=== PATIENT | female | born 1955 | race Caucasian/White ===

== ENCOUNTER → 2017-03-09 | Outpatient (CLI) | payer BC ==
[~2017-03-09] VITALS: Ht 172.7 cm; Wt 90.7 kg
[~2017-03-09] MED LIST: REGADENOSON 0.4 MG/5 ML SYR (LEXISCAN) IV ONE
[2017-03-09] MEDS: CATHETER FLUSH 10 ML SYR IV PRN ×2 (08:05→09:45)
[2017-03-09 09:43] VITALS: BP 144/96
--- NOTE | 2017-03-10 02:42 | STRESS TEST ---
DATE OF SERVICE: 03/09/2017 NUCLEAR STRESS TEST REPORT REASON FOR EXAMINATION: Hyperlipidemia, hypertension, shortness of breath. PROCEDURE DETAILS: The patient was brought to the stress lab after informed consent was taken. Lexiscan stress test was performed according to the protocol. A 0.4 mg of Lexiscan was given IV. Low grade exercise was performed. Baseline rhythm was sinus rhythm, 61 BPM. Blood pressure was 144/96 mmHg. Maximum heart rate was 95 BPM, blood pressure was 144/88 mmHg. There was no chest pain, arrhythmias or ST-T wave abnormalities noted. A 10.83 mCi of Myoview were given for rest imaging and 29.0 mCi of Myoview were given for stress imaging. TID was 0.96, ejection fraction 70%. There is a medium-sized reversible anterior defect noted on review of perfusion imaging. Normal wall motion is noted. IMPRESSION AND CONCLUSION: 1. Pharmacological stress test negative for ischemia. 2. There is evidence of anterior ischemia. Coronary angiography is recommended. Job ID: [id number] DocumentID: [id number] Dictated Date: 03/09/2017 11:36:13 Field Irrigation Worker Date: 03/09/2017 12:22:29 Dictated By: YUSUF TORRES MD
== END ==
LOC: CARD 07:44
PROVIDERS: ATTEND Internal Medicine Interventional Cardiology
DX: I10 Essential (primary) hypertension (principal); E78.5 Hyperlipidemia, unspecified; R06.02 Shortness of breath
CPT/HCPCS: 78452; 93017

== ENCOUNTER 2017-03-13 11:57 | Inpatient (IN) | payer BC ==
[~2017-03-13] VITALS: Ht 172.7 cm; Wt 90.7 kg
[2017-03-13] MEDS ORDERED: LIDOCAINE 1% INJ 50 ML (XYLOCAINE) VIAL ONE (12:20)
[2017-03-13] MEDS ORDERED: HEParin (CATH LAB) 2,000 ML IV ONE (12:20)
[2017-03-13] MEDS ORDERED: NS IV 1000 ML 1,000 ML ONE ×2 (12:20→16:19)
[2017-03-13 12:41] VITALS: BP 142/98
[2017-03-13 12:50] LABS: RED BLOOD COUNT 5.3 10^6/uL (4.35-5.85); RED CELL DISTRIBUTION WIDTH 12.9 % (10.0-14.5); WHITE BLOOD COUNT 6.6 10^3/uL (4.3-11.0)
[2017-03-13 12:55] LABS: INR 0.9 (0.8-1.4); PROTHROMBIN TIME PATIENT 12.2 SEC (12.2-14.7)
[2017-03-13 13:04] LABS: ALANINE AMINOTRANSFERASE 51 U/L (0-55); ALBUMIN 4.4 GM/DL (3.2-4.5); ANION GAP 9 MMOL/L (5-14); ASPARTATE AMINO TRANSFERASE 28 U/L (5-34); BILIRUBIN,TOTAL 0.6 MG/DL (0.1-1.0); BLOOD UREA NITROGEN 8 MG/DL (7-18); BUN/CREATININE RATIO 9; CALCIUM 9.5 MG/DL (8.5-10.1); CARBON DIOXIDE 26 MMOL/L (21-32); CHLORIDE 105 MMOL/L (98-107); CREATININE SERUM 0.93 MG/DL (0.60-1.30); GFR ESTIMATED > 60; GLUCOSE 93 MG/DL (70-105); POTASSIUM 4.2 MMOL/L (3.6-5.0); SODIUM 140 MMOL/L (135-145); TOTAL PROTEIN 7.3 GM/DL (6.4-8.2)
[2017-03-13] MEDS ORDERED: ASPI-983 PO (13:12)
[2017-03-13] MEDS ORDERED: LORA10TA76 PO (13:12)
[2017-03-13] MEDS ORDERED: OMEP20CA12 PO (13:12)
[2017-03-13] MEDS ORDERED: ATOR20TA66 PO (13:14)
[2017-03-13] MEDS ORDERED: AMLO5TAB2 PO (13:14)
[2017-03-13] MEDS ORDERED: NS IV 1000 ML 1,000 ML IV SCH (13:15)
[2017-03-13] MEDS ORDERED: ACET325T38 PO (13:15)
[2017-03-13] MEDS ORDERED: fentaNYL INJECTION 100 MCG/2 ML AMP ONE (14:23)
[2017-03-13] MEDS ORDERED: MIDAZOLAM 2 MG/2 ML (VERSED) VIAL ONE ×2 (14:23→16:15)
[2017-03-13] MEDS ORDERED: diphenhydrAMINE 50 MG/ML INJ (BENADRYL) ONE (14:24)
[2017-03-13] MEDS ORDERED: HEParin 1000 UNIT/ML (10ML VIAL) FOR BOLUS ONE (14:25)
[2017-03-13] MEDS ORDERED: NITROGLYCERIN DRIP 25 MG/D5W 250 ML IV ONE (14:26)
[2017-03-13] MEDS ORDERED: VERAPAMIL 5 MG/2 ML (CALAN) VIAL IV ONE (14:27)
--- NOTE | 2017-03-13 14:55 | Cardiac Procedure Note-CS/ASA ---
Pre-Procedure Note Pre-Op Procedure Note H&P Reviewed The H&P was reviewed, patient examined and no changes noted. Date H&P Reviewed: Mar 13, 2017 Time H&P Reviewed: 14:54 Conscious Sedation Pre-Proced Time Reviewed: 14:54 ASA Class: 3 Airway Mallampati Classification: (red devil appropriate class) I. II. III, IV Lungs Heart ASA score ASA 1: a normal healthy patient ASA 2: a patient with a mild systemic disease (mid diabetes, controlled hypertension, obesity ASA 3: a patient with a severe systemic disease that limits activity (angina , COPD, prior Myocardial infarction) ASA 4: a patient with an incapacitating disease that is a constant threat to life (CHF, renal failure) ASA 5: a moribund patient not expected to survive 24 hrs. (ruptured aneurysm) ASA 6: a declared brain patient whose organs are being harvested. For emergent operations, add the letter E after the classification Grade 1 Sedation Plan: Analgesia, Amnesia, Plan communicated to team members, Discussed options with patient/fam, Discussed risks with patient/fam Note The patient is an appropriate candidate to undergo the planned procedure, sedation, and anesthesia. The patient immediately re-assessed prior to indication. Micheline TORRES MD Mar 13, 2017 2:55 pm
[2017-03-13] MEDS ORDERED: ADENOSINE 3 MG/1 ML (ADENOSCAN) 30ML VIAL IV ONE ×2 (15:11→16:03)
[2017-03-13] MEDS ORDERED: CLOPIDOGREL 300 MG (PLAVIX) TABLET PO ONE (15:59)
[2017-03-13] MEDS ORDERED: ATROPINE INJECTION 1 MG/10 ML SYR (ABBOTT) ONE (16:10)
[2017-03-13] MEDS ORDERED: FLUMAZENIL (ROMAZICON) 0.1 MG/ML 5 ML VIAL ONE (16:40)
[2017-03-13] MEDS ORDERED: PATIENT MAY USE OWN MEDS, ALL PO SCH (17:00)
[2017-03-13] MEDS ORDERED: NITROGLYCERIN 2% OINT 1 GM UNIT DOSE PACKET ONE (17:09)
[2017-03-13] MEDS ORDERED: morphine INJ 10 MG/ML 1ML (SYR OR VIAL) ONE (17:12)
--- NOTE | 2017-03-13 17:41 | Cardiology Post Procedure Note ---
Post-Procedure Note Physician (s)/Geoscientist (s) Physician Micheline TORRES MD Pre-Procedure Diagnosis Pre-Procedure Diagnosis: shortness of breath, abnormal nuc stress test Post-Procedure Note Procedure Start Date: Mar 13, 2017 Procedure Start Time: 14:00 Name of Procedure: coronary angiography, LHC, FFR to LAD, PCI to LAD with two RAMON Findings/Procedure Note Moderate to Severe LAD stenosis - FFR 0.57, therefore treated with two RAMON. at the end of the procedure, patient complained of shortness of breath and there was acute confusion. Vitals stable, oxygen saturation 99%, Coronary angiography shows MARY III flow with patent stents. Normal cardiac and respiratory examination. Echo done immediately which showed normal LVEF with normal wall motion, no pericardial effusion. CT head - non-contrast; negative for bleed (prelim). transfer to ICU - ICU consult with Dr Vera. Anesthesia Type: Conscious Sedation Estimated blood loss (mL): 20 Contrast Amount: 350 Post-Procedure Diagnosis Post-operative diagnosis: PCI with 2 RAMON to proximal and mid LAD. Episode of Acute confusion and shortness of breath at the end of the procedure; improved with morphine Micheline TORRES MD Mar 13, 2017 5:41 pm
[2017-03-13] MEDS ORDERED: ONDANSETRON 4 MG/2 ML (SDV) Z0FRAN IVP PRN (18:20)
--- NOTE | 2017-03-13 18:21 | Diagnostic Imaging Report ---
EXAM: CT scan of the head performed without intravenous contrast. INDICATION: Confusion developed during cardiac catheter. FINDINGS: There is intravascular contrast seen, probably related to contrast administration during the cardiac catheter procedure. This may decrease sensitivity of this study to detect minimal intracranial hemorrhage. No intracranial hematoma however is evident on this exam. The camara-white matter differentiation appears preserved. No hydrocephalus. No extra-axial fluid collection is seen. The calvarium, the visualized portions of the paranasal sinuses and orbits appear unremarkable. IMPRESSION: No definite abnormality. Dictated by: Dictated on workstation # [id number]
[2017-03-13] MEDS ORDERED: NITROGLYCERIN 0.4 MG SL TABS BTL 25'S SL ONE (18:45)
[2017-03-13] MEDS ORDERED: morphine INJ 4 MG/ML 1 ML (VIAL/SYRINGE) IVP PRN (18:45)
[2017-03-13 19:00] VITALS: BP 176/89
[2017-03-13 20:00] VITALS: BP 174/81
[2017-03-13] MEDS ORDERED: amLODIPine 10 MG (NORVASC) TAB PO ONE (20:00)
[2017-03-13 21:00] VITALS: BP 177/96
[2017-03-13 22:00] VITALS: BP 151/86
[2017-03-13] MEDS: NS IV 1000 ML 1,000 ML IV SCH (22:30)
[2017-03-14] VITALS (7 sets, daily range): BP systolic 130–154; BP diastolic 62–107
[2017-03-14] MEDS ORDERED: ACETAMINOPHEN 325 MG TABLET/CAPLET (TYLENOL) PO PRN ×2 (00:30→08:00)
[2017-03-14 04:53] LABS: MEAN PLATELET VOLUME 11.9 FL (7.4-10.4); RED BLOOD COUNT 4.61 10^6/uL (4.35-5.85); RED CELL DISTRIBUTION WIDTH 13.1 % (10.0-14.5)
[2017-03-14 05:09] LABS: ANION GAP 10 MMOL/L (5-14); BLOOD UREA NITROGEN 7 MG/DL (7-18); BUN/CREATININE RATIO 9; CALCIUM 8.3 MG/DL (8.5-10.1); CARBON DIOXIDE 22 MMOL/L (21-32); CHLORIDE 105 MMOL/L (98-107); CREATININE SERUM 0.77 MG/DL (0.60-1.30); GFR ESTIMATED > 60; GLUCOSE 110 MG/DL (70-105); POTASSIUM 4.1 MMOL/L (3.6-5.0); SODIUM 137 MMOL/L (135-145)
[2017-03-14] MEDS: NS IV 1000 ML 1,000 ML IV SCH ×2 (05:49→09:02)
[2017-03-14] MEDS ORDERED: CATHETER FLUSH 10 ML SYR IV PRN (07:00)
--- NOTE | 2017-03-14 07:23 | Pulmonary Consultation ---
History of Present Illness History of Present Illness Date of Consultation 03/13/17 late note for 03/13 today is 03/14 07:17 Time Seen by Provider: 18:00 Date of Admission History of Present Illness 61yo presented for cardiac cath and after cath started complained of worsening SOB and acute confusion. Sp02 was 99%. Echo showed normal cardiac function. CT of head was done stat and showed no acute change. I was called to see patient secondary to his symptoms of confusion and SOB. Upon my arrival symptoms had resolved and pt is now A&O. Family at bedside. Pt has no complaints/concerns currently. Allergies and Home Medications Allergies Coded Allergies: No Known Drug Allergies (Unverified , 03/09/17) Home Medications Acetaminophen 325 Mg Tablet, 325 MG PO Q4H PRN for PAIN-MILD, (Reported) Amlodipine Besylate 5 Mg Tablet, 5 MG PO DAILY, (Reported) Aspirin 81 Mg Tablet.dr, 81 MG PO HS, (Reported) Atorvastatin Calcium 20 Mg Tablet, 10 MG PO HS, (Reported) TAKES 1/2 (20MG) TABLET Loratadine 10 Mg Tablet, 10 MG PO DAILY, (Reported) Omeprazole 20 Mg Capsule.dr, 20 MG PO DAILY, (Reported) Past Uwvwshy-Dxzzlx-Ducvxg Hx Patient Social History Smoking Status: Never a Smoker Recent Foreign Travel: No Contact w/Someone Who Travel: No Recent Infectious Disease Expo: No Immunizations Up To Date Date of Influenza Vaccine: Dec 12, 2016 Cancer Cancer: Skin Review of Systems Time Seen by Provider: 07:24 Constitutional: Weakness, Malaise, No: Fever, Chills, Sweats, Other Eyes: No: Pain, Vision change, Conjunctivae inflammation, Eyelid inflammation, Other, Redness ENT: No: Ear pain, Ear discharge, Nose pain, Nose discharge, Nose congestion, Mouth pain, Mouth swelling, Throat pain, Throat swelling, Other Respiratory: Cough, Dry, Shortness of breath, SOB with excertion, No: Wheezing , Hemoptysis Cardiovascular: Chest Pain, Palpitations, Orthopnea, Paroxysmal Noc. Dyspnea Neurological: No: Weakness, Numbness, Incoordination, Change in speech, Confusion, Seizures, Other Exam Exam Vital Signs Date Time Temp Pulse Resp B/P (MAP) Pulse Ox O2 Delivery O2 Flow Rate FiO2 03/14/17 04:00 66 137/70 (92) Room Air 03/14/17 01:00 78 12/12/17 00:00 97.8 75 150/86 (107) Room Air 03/13/17 22:00 70 151/86 (107) Room Air 03/13/17 21:00 97 Room Air 03/13/17 21:00 72 177/96 (123) Room Air 03/13/17 20:00 98.0 72 174/81 (112) Room Air 03/13/17 19:00 75 03/13/17 19:00 63 176/89 (118) Room Air 03/13/17 12:41 97.2 61 17 142/98 (113) 98 Room Air General Appearance: Anxious, Mild Distress HEENT: PERRL/EOMI Neck: Full Range of Motion, Non Tender, Supple Respiratory: Decreased Breath Sounds Cardiovascular: Regular Rate, Rhythm, No Edema, No Gallop, Normal Peripheral Pulses Gastrointestinal: normal bowel sounds, non tender, soft, no organomegaly Extremity: Normal Capillary Refill, Normal Inspection Neurologic/Psychiatric: Alert, Oriented x3 Skin: Normal Color Lymphatic: No Adenopathy Results Lab Laboratory Tests 03/13/17 12:40 03/14/17 04:30 Assessment/Plan Assessment/Plan Moderate to Severe LAD stenosis s/p cath Acute psychosis and SOB post anesthesia -- now resolved. -Monitor in ICU -Head CT is negative -Check CXR Labs and radiology reviewed 255 PHIL WOLFE DO Mar 14, 2017 07:23
--- NOTE | 2017-03-14 07:30 | Pulmonary Progress Note ---
Subjective Time Seen by Provider: 07:29 Subjective/Events-last exam Pt has no complaints. Denies SOB. He does have mild CP that he contributes to his telemetry. Exam Exam Vital Signs Date Time Temp Pulse Resp B/P (MAP) Pulse Ox O2 Delivery O2 Flow Rate FiO2 03/14/17 04:00 66 137/70 (92) Room Air 03/14/17 01:00 78 03/14/17 00:00 97.8 75 150/86 (107) Room Air 03/13/17 22:00 70 151/86 (107) Room Air 03/13/17 21:00 97 Room Air 03/13/17 21:00 72 177/96 (123) Room Air 03/13/17 20:00 98.0 72 174/81 (112) Room Air 03/13/17 19:00 75 03/13/17 19:00 63 176/89 (118) Room Air 03/13/17 12:41 97.2 61 17 142/98 (113) 98 Room Air General Appearance: No Apparent Distress, Anxious HEENT: PERRL/EOMI Neck: Full Range of Motion, Non Tender, Supple Respiratory: Decreased Breath Sounds Cardiovascular: Regular Rate, Rhythm, No Edema, No Gallop, Normal Peripheral Pulses Gastrointestinal: normal bowel sounds, non tender, soft, no organomegaly Extremity: Normal Capillary Refill, Normal Inspection Neurologic/Psychiatric: Alert, Oriented x3 Skin: Normal Color Lymphatic: No Adenopathy Results Lab Laboratory Tests 03/13/17 12:40 03/14/17 04:30 Assessment/Plan Assessment/Plan Moderate to Severe LAD stenosis s/p cath -Cardiology is following Elevated troponin - probably secondary to heart cath. Acute psychosis and SOB post anesthesia -- now resolved. -Monitor in ICU -Head CT is negative -Check CXR Labs and radiology reviewed. 232 PHIL WOLFE DO Mar 14, 2017 07:30
--- NOTE | 2017-03-14 07:55 | Diagnostic Imaging Report ---
INDICATION: Shortness of breath. COMPARISON: None FINDINGS: Upright portable view of the chest is obtained. Heart size is normal. The pulmonary vessels appear unremarkable. There is no pneumothorax, mediastinal widening or pleural fluid. The lungs are clear. IMPRESSION: No acute abnormality is demonstrated. Dictated by: Dictated on workstation # [id number]
[2017-03-14] MEDS ORDERED: CLOPIDOGREL 75 MG (PLAVIX) TABLET PO SCH (09:00)
[2017-03-14] MEDS: amLODIPine 5 MG (NORVASC) TAB PO SCH (09:47)
[2017-03-14] MEDS: OMEPRAZOLE 20 MG (PriLOSEC) CAP NON-FORMULARY PO SCH (09:48)
[2017-03-14] MEDS: LORATADINE (CLARITIN) 10 MG TAB PO SCH (09:48)
[2017-03-14] MEDS: ASPIRIN E.C. 81 MG (ECOTRIN) TAB PO SCH ×2 (09:52→11:56)
[2017-03-14] MEDS ORDERED: TICAGRELOR 90 MG TABLET (BRILINTA) PO NR (12:00)
--- NOTE | 2017-03-14 12:42 | Cardiology Progress Note ---
Cardiology SOAP Progress Note Subjective: Mild chest pain yesterday evening. Acute confusion and shortness of breath improved in the evening. Objective: I&O/Vital Signs Vital Sign - Last 12Hours 03/14/17 03/14/17 03/14/17 03/14/17 01:00 04:00 07:00 07:50 Temp 98.3 Pulse 78 66 74 75 Resp 20 B/P (MAP) 137/70 (92) 150/82 (104) Pulse Ox 98 O2 Delivery Room Air Room Air 03/14/17 03/14/17 08:00 11:57 Temp 98.8 Pulse 72 Resp 16 B/P (MAP) 150/107 (121) 154/79 (104) Pulse Ox 97 O2 Delivery Room Air Weight (Pounds): 200 Weight (Ounces): 0.0 Weight (Calculated Kilograms): 90.394587 Side: right Condition: extremity w/d/p Swelling: without swelling Constitutional: No appears stated age, No AAO x 3, No apparent distress, No PERRL, No well-developed, No well-nourished, No other Respiratory: No accessory muscle use, No respiratory distress, No chest tender , No chest expansion is symmetric, No chest is bilaterally symmetric, No lungs clear to percussion, No lungs clear to auscultation, No crackles, No rhonchi, No rales, No stridor, No wheezing, No pleural rub, No other Cardiovascular: No regular rate-rhythm, No irregularly irregular, No extra beats, No parasternal heave is noted, No JVD, No edema, No bradycardia, No tachycardia, No point of maximal impulse, No cardiac thrills are palpable, No S1 and S2, No gallop/S3, No gallop/S4, No diastolic murmur, No systolic murmur, No friction rub, No click, No other Gastrointestional: No tender, No soft, No round, No distended, No pulsatile mass, No organomegaly, No guarding, No rebound, No tenderness, No hernia, No mass, No audible bowel sounds, No abnormal bowel sounds, No abdominal bruits, No spleenomegaly, No other Extremities: No normal range of motion, No non-tender, No normal inspection, No pedal edema, No calf tenderness, No normal capillary refill, No pelvis stable , No calf tenderness, No inflammation, No pedal edema, No slow capillary refill , No swelling, No other, No abrasion, No clubbing, No cyanosis, No ecchymosis, No laceration, No no lower extremity edema bilateral, No significant edema, No tenderness, No wound Neurologic/Psychiatric: No research geologist II-XII nml as tested, No no motor/sensory deficits, No alert, No normal mood/affect, No oriented x 3, No abnormal cerebellar tests, No abnormal research geologist II-XII, No abnormal gait, No aphasia, No EOM palsy, No facial droop, No motor weakness, No sensory deficit, No depressed affect, No disoriented x 3, No other, No grossly intact, No power is 5/5 both on sides Skin: No normal color, No warm/dry, No cyanosis, No cool, No diaphoresis, No damp, No ecchymosis, No jaundice, No mottled, No pallor, No rash, No tattoos/ piercings, No ulcerations, No rash on exposed areas, No ulcerations on exposed areas, No other Results/Procedures: Labs Laboratory Tests 03/13/17 12:40: White Blood Count 6.6, Red Blood Count 5.30, Hemoglobin 16.1, Hematocrit 45, Mean Corpuscular Volume 85, Mean Corpuscular Hemoglobin 30, Mean Corpuscular Hemoglobin Concent 36, Red Cell Distribution Width 12.9, Platelet Count 202, Mean Platelet Volume 11.0H, Prothrombin Time 12.2, INR Comment 0.9, Activated Partial Thromboplast Time 30, Sodium Level 140, Potassium Level 4.2, Chloride Level 105, Carbon Dioxide Level 26, Anion Gap 9, Blood Urea Nitrogen 8, Creatinine 0.93, Estimat Glomerular Filtration Rate > 60, BUN/Creatinine Ratio 9 , Glucose Level 93, Calcium Level 9.5, Total Bilirubin 0.6, Aspartate Amino Transf (AST/SGOT) 28, Alanine Aminotransferase (ALT/SGPT) 51, Alkaline Phosphatase 84, Total Protein 7.3, Albumin 4.4 03/13/17 19:07: Troponin I < 0.30 03/14/17 04:30: White Blood Count 9.0, Red Blood Count 4.61, Hemoglobin 13.9, Hematocrit 40, Mean Corpuscular Volume 86, Mean Corpuscular Hemoglobin 30, Mean Corpuscular Hemoglobin Concent 35, Red Cell Distribution Width 13.1, Platelet Count 158, Mean Platelet Volume 11.9H, Sodium Level 137, Potassium Level 4.1, Chloride Level 105, Carbon Dioxide Level 22, Anion Gap 10, Blood Urea Nitrogen 7, Creatinine 0.77, Estimat Glomerular Filtration Rate > 60, BUN/Creatinine Ratio 9 , Glucose Level 110H, Calcium Level 8.3L, Troponin I 7.01*H 03/14/17 11:01: Troponin I 9.42*H A/P: Assessment/Dx: recurrent chest pain, abnormal nuclear stress test, status post PCI with 2 drug- eluting stent to severe proximal and mid LAD stenosis. Acute confusion post procedure. Plan: troponin trending up. Last troponin 9. Continue serial troponin, one in the evening and one in the morning. If continues to go up or patient develops further chest pain we will consider coronary angiography to address the jailed diagonal artery. Troponin leak could also be due to significant distal embolization. Change Plavix to Brilinta. Full dose Lovenox today and tomorrow. Low-dose beta denise. Maximize on an THELMA inhibitor. High-dose atorvastatin. add lipid profile. Limited echocardiogram in the morning. acute confusion likely a reaction to benzodiazepines or narcotics. If he needs coronary angiography again it will either be with general anesthesia or only with local anesthesia with no conscious sedation. change patient's status to inpatient. Discussed at length with the patient and family. Thank you for your consultation. Please call me if you have any questions. Pushpa Wallace MD, FACP, FACC, FSCAI, FHRS, CCDS Interventional Cardiology Cardiac Electrophysiology Vascular Medicine and Endovascular Interventions Micheline WALLACE MD Mar 14, 2017 12:42 pm
[2017-03-14 12:50] LABS: CHOLESTEROL 149 MG/DL (< 200); DIRECT LDL 95 MG/DL (1-129); TRIGLYCERIDES 61 MG/DL (<150); VLDL CHOLESTEROL 12 MG/DL (5-40)
[2017-03-14] MEDS: ENOXAPARIN 100 MG/1 ML (LOVENOX) SYR SC SCH ×2 (13:53→23:38)
[2017-03-14] MEDS: lisINopril 20 MG (ZESTRIL) TAB PO SCH (13:53)
[2017-03-14] MEDS: meTOprolol TARTRATE 25 MG (LOPRESSOR) TABLET PO SCH (20:49)
[2017-03-14] MEDS: TICAGRELOR 90 MG TABLET (BRILINTA) PO SCH (20:49)
[2017-03-14] MEDS ORDERED: ASPIRIN E.C. 81 MG (ECOTRIN) TAB PO SCH (21:00)
[2017-03-14] MEDS ORDERED: ATORVASTATIN 40 MG (LIPITOR) TABLET PO SCH (21:00)
[2017-03-14] MEDS ORDERED: ATORVASTATIN 20 MG (LIPITOR) TABLET PO SCH (21:00)
--- NOTE | 2017-03-14 23:29 | CARDIAC CATHETERIZATION ---
DATE OF SERVICE: 03/13/2017 CORONARY ANGIOGRAPHY AND PCI REPORT INDICATION: Shortness of breath, abnormal nuclear stress test. PREOPERATIVE DIAGNOSES: Shortness of breath, abnormal nuclear stress test. POSTOPERATIVE DIAGNOSES: 1. Severe left anterior descending disease treated with 2 drug-eluting stents. 2. Acute confusion and shortness of breath post percutaneous coronary intervention. HISTORY: The patient is a 61-year-old gentleman, who has a history of hypertension and hyperlipidemia. He presented with recurrent episodes of shortness of breath. Nuclear stress test shows a significant reversible defect in the anterior wall. Therefore, he was scheduled for coronary angiography. PROCEDURE PERFORMED: 1. Left heart catheterization. 2. Coronary angiography. 3. FFR to the LAD. 4. PCI to the LAD with drug-eluting stent. ANTICOAGULATION: IV heparin. ANESTHESIA: Conscious sedation. ESTIMATED BLOOD LOSS: 20 mL. CONTRAST DOSE: 350 mL of Omnipaque. RADIATION DOSE: 1965 milligrays. FLUOROSCOPY TIME: 28.4 minutes. PROCEDURE IN DETAIL: The patient was brought to the radiographer cardiac catheterization after informed consent was taken. All the risks and complications were explained in detail. The patient was draped and prepped in the usual sterile fashion. Access was gained in the right radial artery with the 6-Thai sheath. Left heart catheterization was performed with a Adarsh catheter. We could not engage the right coronary system with the Adarsh catheter. 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 The left coronary system was engaged with the Adarsh catheter. FINDINGS: 1. Left heart catheterization: LV pressure 122/6 mmHg. LVEDP 16 mmHg. Aortic pressure 103/64 mmHg. Normal LV function with no wall motion abnormalities. There was no gradient across the aortic valve. 2. Patent left main. 3. Patent left circumflex artery. 4. Ggmybccb-km-zmvwat mid LAD disease. The mid LAD disease involves the ostium of diagonal artery. There is also severe diffuse proximal and ostial LAD disease. The LAD is a transapical vessel. 5. RCA has mild disease in the distal RCA segment. The RCA is a dominant vessel. There is also mild luminal irregularity in the mid segment. RECOMMENDATION: FFR to the LAD is recommended and if significant, PCI to the LAD. INTERVENTION DETAILS: We took an EBU 3.5 guide catheter. We also took a pressure wire as a guidewire. IV heparin was given for anticoagulation. ACT during the procedure was over 250 seconds. The lesion was crossed with the FFR wire. Baseline FFR was 0.80. Adenosine was given at 140 mcg per kg per minute. Lowest FFR was 0.57, which is significant. Therefore, we took a Resolute Integrity 3.0 x 18 Medtronic drug-eluting stent and placed it in the mid LAD 14 atmospheres for 64 seconds. Jailing of the diagonal was noted. We also noted slow flow, which improved with intracoronary nitroglycerin 100 mcg. We then took another Resolute Integrity 3.0 x 30 mm drug-eluting stent and placed it very carefully from the ostium of the LAD with an overlap with the second stent. The stent was deployed at 14 atmospheres for 30 seconds. Significant improvement in flow was noted with MARY 3 flow. The diagonal also had MARY 3 flow. At this point in time, the patient was very uncomfortable, was complaining of shortness of breath. Acute confusion was noted. However, all his vitals were normal with normal systolic blood pressure, heart rate and oxygen saturation of 99%. Angiographically, there was no abnormality except jailing of the diagonal artery which still had MARY 3 flow. Naloxone was given to reverse narcotics. However, no significant improvement was noted. At this point in time, we stopped and accepted very good angiographic results with MARY 3 flow and no residual stenosis. Radial band was placed. The patient was taken off the table, but still continued to be acutely confused, therefore, a stat CT head was performed, which did not show any intracerebral bleeding. The patient improved with morphine and gradually his mental status improved significantly after he went to the ICU. IMPRESSION AND RECOMMENDATION: 1. Severe left anterior descending disease, treated successfully with 2 drug-eluting stents. Jailing of the diagonal artery was noted. Also, there was slow flow during the procedure. 2. Acute confusion, shortness of breath and mild chest pain. EKG showed mild ST changes; therefore, a stat echocardiogram was done, which showed normal left ventricular ejection fraction with no wall motion abnormalities and no pericardial effusion. Cardiac respiratory examination was normal with no rhonchi or wheezing heard. Stat CT was done, which was negative. 3 The patient will be transferred to the ICU. I will request ICU consultation with Dr. Jimmie Vera. 4. We will continue serial troponin as well as EKG. Continue IV fluids. Job ID: [id number] DocumentID: [id number] Dictated Date: 03/14/2017 13:44:22 Barn And Property Manager Date: 03/14/2017 14:36:57 Dictated By: YUSUF TORRES MD MTDD
[2017-03-15] VITALS: BP 147/71
[2017-03-15 04:00] VITALS: BP 111/60
[2017-03-15 07:30] VITALS: BP 138/63
[2017-03-15] MEDS: lisINopril 20 MG (ZESTRIL) TAB PO SCH (09:31)
[2017-03-15] MEDS: amLODIPine 5 MG (NORVASC) TAB PO SCH (09:31)
[2017-03-15] MEDS: LORATADINE (CLARITIN) 10 MG TAB PO SCH (09:31)
[2017-03-15] MEDS: meTOprolol TARTRATE 25 MG (LOPRESSOR) TABLET PO SCH (09:31)
[2017-03-15] MEDS: TICAGRELOR 90 MG TABLET (BRILINTA) PO SCH (09:32)
[2017-03-15] MEDS: OMEPRAZOLE 20 MG (PriLOSEC) CAP NON-FORMULARY PO SCH (09:34)
[2017-03-15] MEDS: ASPIRIN E.C. 81 MG (ECOTRIN) TAB PO SCH (09:38)
[2017-03-15] MEDS ORDERED: ATOR40TA PO (10:45)
[2017-03-15] MEDS ORDERED: METO-333 PO (10:45)
[2017-03-15] MEDS ORDERED: LISI-552 PO (10:45)
[2017-03-15] MEDS ORDERED: TICA90TA PO (10:45)
--- NOTE | 2017-03-15 10:46 | Discharge Inst-Post CATH ---
Discharge Inst-CATH Post Cardiac Cath D/C Inst Follow Up/Plan Dr. Wallace on Monday CARDIAC CATH DISCHARGE INSTRUCTIONS *Hold Metformin for 48 hours post heart cath. ACTIVITY * Go Home directly and rest. * Limit activity of the leg (or wrist if it was used) for 7 days including aerobics, swimming, jogging, bicycling, etc. * Restrict stair-climbing for 7 days if possible, if not, climb up with your non -cath leg, then bring together on the same step. * Avoid lifting, pushing, pulling or excessive movement of the affected extremity for 7 days. * Customary sexual activity may be resumed after 2 days-use caution not to use a position that strains or causes pain to the affected extremity. * No driving for 24 hours. * NO SMOKING. * Avoid straining for bowel movements for 7 days. * Gentle walking on level ground is allowed. * Returning to work will depend on the type of procedure and the results. Your doctor will discuss this with you. CALL YOUR DOCTOR FOR ANY OF THE FOLLOWING: *If bleeding from the puncture site occurs- Apply gentle pressure to site with clean cloth and call your doctor or EMS. * If a knot or lump forms under the skin, increases in size, or causes pain. * If bruising appears to be worsening or moving further down your leg instead of disappearing. * Temperature above 101 F. CARE OF YOUR GROIN INCISION; * Bruising or purple discoloration of the skin near the puncture site is common. * You may shower only, no bathtub bathing for 5 days. Be careful to avoid slipping as your leg may feel stiff. * If a closure device was used on your femoral artery, please see the attached guide regarding care of the device and your leg. * REMOVE the dressing from your groin the next day after your procedure in the shower. CARE OF YOUR WRIST INCISION; * Bruising or purple discoloration of the skin near the puncture site is common. * You may shower. * DO NOT submerge wrist. * Remove dressing in 24 hours. Micheline WALLACE MD Mar 15, 2017 10:46
--- NOTE | 2017-03-15 10:50 | Cardiology Discharge Summary ---
Diagnosis/Chief Complaint Date of Admission Mar 14, 2017 at 12:18 Date of Discharge 03/15/2017 Admission Diagnosis Recurrent shortness of breath, abnormal nuclear stress test Final/Discharge Diagnosis Severe LAD stenosis treated with 2 drug-eluting stents Chief Complaint/HPI Chief Complaint/HPI This is a 61-year-old male who presented to the office with recurrent shortness of breath with exertion. He has history of hypertension and hyperlipidemia. Nuclear stress test was done which showed significant reversible abnormality in the anterior wall. He was consented for coronary angiography. Discharge Summary Procedures Severe LAD stenosis in the ostial to the midsegment. Treated with 2 drug- eluting stents. Discharge Physical Examination Stable cardiac and respiratory examination. Palpable right radial pulse. Hospital Course Pending Labs Laboratory Tests 03/15/17 04:35: Troponin I 7.34 Discussion & Recommendations Discussion Patient developed acute confusion at the end of the procedure. CT head was negative. Differential diagnoses includes drug reaction to either narcotics or benzodiazepines. Although very rare contrast-induced encephalopathy has been documented in the medical literature. I discussed at length with the patient. Also the patient had elevated troponin post-PCI which could be secondary to slow flow phenomena and jailing of the first diagonal artery. Also distal embolization also occurred. Compliance with medications was strongly recommended. Healthy living was recommended. Discharge took over 30 minutes to complete. Follow up appt.: Dr. Wallace on Monday Dicharge Diet: Cardiac Diet Activity as Tolerated: Yes Home Medications Reviewed patient Home Medication Reconciliation Form Discharge Home Medications: Reviewed and agree with Discharge Medication list on patient's Discharge Instruction sheet Condition at discharge Stable Instructions to patient/family Dr. Wallace on Monday Micheline WALLACE MD Mar 15, 2017 10:50
[2017-03-15 11:35] VITALS: BP 138/63
== END 2017-03-15 11:36 | disposition home or self-care (01) | DRG 247 ==
LOC: EDSEX 11:57 → CATH 11:57 → ICU 17:35 → CATH 03-14 12:18 → UNDODISIN 03-15 11:36
PROVIDERS: ADMIT Internal Medicine Interventional Cardiology; ATTEND Internal Medicine Interventional Cardiology
PROC: 027035Z Dilation of Coronary Artery, One Artery with Two Drug-eluting Intraluminal Devices, Percutaneous Approach (ICD-10-PCS; principal; 2017-03-13)
PROC: 4A023N7 Measurement of Cardiac Sampling and Pressure, Left Heart, Percutaneous Approach (ICD-10-PCS; 2017-03-13)
PROC: B2151ZZ Fluoroscopy of Left Heart using Low Osmolar Contrast (ICD-10-PCS; 2017-03-13)
PROC: B2111ZZ Fluoroscopy of Multiple Coronary Arteries using Low Osmolar Contrast (ICD-10-PCS; 2017-03-13)
DX: I25.10 Atherosclerotic heart disease of native coronary artery without angina pectoris (principal); F23 Brief psychotic disorder; R06.02 Shortness of breath; R07.9 Chest pain, unspecified; I10 Essential (primary) hypertension; E78.5 Hyperlipidemia, unspecified; R79.89 Other specified abnormal findings of blood chemistry
CPT/HCPCS: 36415; 70450; 71010; 80048; 80053; 80061; 84484; 85027; 85347; 85610; 85730; 87081; 92928; 93005; 93308; 93458; 93571

== ENCOUNTER → 2017-03-23 | Outpatient (CLI) | payer BC ==
[~2017-03-23] MED LIST changes: +ACET325T38 PO; +AMLO5TAB2 PO; +ASPI-983 PO; +ATOR20TA66 PO; +ATOR40TA PO; +LISI-552 PO; +LORA10TA76 PO; +METO-333 PO; +OMEP20CA12 PO; -REGADENOSON 0.4 MG/5 ML SYR (LEXISCAN) IV ONE; +TICA90TA PO
== END ==
LOC: EDSEX → EDUNIT# 10:00 → CARD 10:09
PROVIDERS: ATTEND Internal Medicine Interventional Cardiology
DX: E78.5 Hyperlipidemia, unspecified (principal); I10 Essential (primary) hypertension; R06.02 Shortness of breath

== ENCOUNTER → 2019-12-23 | Outpatient (CLI) | payer BC ==
[~2019-12-23] MED LIST changes: -AMLO5TAB2 PO; +AMLO5TAB9 PO; +ASPI-1238 PO; -ASPI-983 PO; -OMEP20CA12 PO; +OMEP20CA18 PO
== END ==
LOC: CARD 10:30
PROVIDERS: ATTEND Internal Medicine Interventional Cardiology
DX: I35.1 Nonrheumatic aortic (valve) insufficiency (principal); I10 Essential (primary) hypertension; I25.10 Atherosclerotic heart disease of native coronary artery without angina pectoris; E78.5 Hyperlipidemia, unspecified
CPT/HCPCS: 93306

== ENCOUNTER → 2020-11-09 | Outpatient (CLI) | payer BC ==
[~2020-11-09] MED LIST changes: +AMLO-250 PO; -AMLO5TAB9 PO; -LISI-552 PO; +LISI20TA26 PO; +REGADENOSON 0.4 MG/5 ML SYR (LEXISCAN) IV ONE
[2020-11-09] MEDS: CATHETER FLUSH 10 ML SYR IV PRN ×2 (11:37→12:35)
[2020-11-09 12:23] VITALS: BP 126/54
--- NOTE | 2020-11-11 09:11 | Cardiology Stress Test Report ---
Stress Test Report Date of Procedure/Referring: Date of Procedure: Nov 09, 2020 PCP Kaiser Salas MD Admitting Physician Chris Brooks MD Indications: CAD Baseline Heart Rate: 72 Baseline Blood Pressure: Blood Pressure Systolic: 126 Blood Pressure Diastolic: 54 Baseline Vitals Vital Signs Date Time Temp Pulse Resp B/P (MAP) Pulse Ox O2 Delivery O2 Flow Rate FiO2 11/09/20 12:23 90 16 126/54 (78) 98 Room Air Baseline EKG: Baseline EKG: NSR Summary After explaining the procedure to the patient, he signed a consent and then brought to the stress nuclear laboratory. Patient received 0.4 mg Lexiscan for stress test, ECG, heart rate and blood pressure were monitored continuously. Resting and stress dose of radio tracer were injected, imaging was acquired and reviewed in short axis, horizontal long axis and vertical long axis views. TID: 1.06 SSS: 0 SDS: 0 EF: 53 1. Patient tolerated Lexiscan well 2. Apical thinning with no significant ischemia or infarction on SPECT images 3. Normal left ventricular size, EF 53% KAISER SALAS MD Nov 11, 2020 09:11
== END ==
LOC: CARD 11:00
PROVIDERS: ATTEND Internal Medicine Cardiovascular Disease
DX: I25.10 Atherosclerotic heart disease of native coronary artery without angina pectoris (principal)
CPT/HCPCS: 78452; 93017; A9502